=== PATIENT | male | born 1965 | race Caucasian/White ===

== ENCOUNTER 2022-06-03 12:05 | Emergency (ER) | payer BC ==
[~2022-06-03] VITALS: Ht 175.3 cm; Wt 84.4 kg
[2022-06-03 12:22] VITALS: BP 144/90
[2022-06-03] MEDS ORDERED: LIDOCAINE MPF 1% 10 MG/ML VIAL INJ ONE ×2 (18:15→19:15)
[2022-06-03] MEDS ORDERED: IBUPROFEN 600 MG TAB PO ONE (18:15)
[2022-06-03] MEDS ORDERED: IBUP-2213 PO (19:28)
[2022-06-03] MEDS ORDERED: CEPH-588 PO (19:28)
--- NOTE | 2022-06-03 21:02 | NUR ---
CALLED FOR D/C. PT LEFT WITHOUT RECEIVING ACI
== END 2022-06-03 21:02 | disposition home or self-care (01) ==
LOC: MED 12:05
DX: L03.011 Cellulitis of right finger (principal); E11.9 Type 2 diabetes mellitus without complications; Z79.899 Other long term (current) drug therapy; Z79.84 Long term (current) use of oral hypoglycemic drugs
CPT/HCPCS: 10060; 82948; 99283; J2001